=== PATIENT | female | born 1995 | race Caucasian/White ===

== ENCOUNTER 2017-10-09 20:04 | Emergency (ER) | payer OTHER ==
[2017-10-09] MEDS: ONDANSETRON 4MG/2ML VIAL (J2405) IV (20:45)
[2017-10-09] MEDS: NS 1,000 ML IV (20:45)
[2017-10-09 21:03] LABS: BASO % 0.4 % (0.0-1.0); EOS % 0.3 % (0.0-3.0); IMMATURE GRANULOCYTE % 0.3 % (0-3.0); LYMPH # 1.4 10^3/uL (1.5-6.5); LYMPH % 13.4 % (24.0-44.0); MEAN CORPUSCULAR HEMOGLOBIN 29.8 pg (27.0-33.0); MEAN CORPUSCULAR HGB CONC 35.7 g/dl (32.0-36.5); MEAN CORPUSCULAR VOLUME 83.5 fl (80.0-96.0); MONO # 0.6 10^3/uL (0.0-0.8); MONO % 5.9 % (0.0-5.0); NEUTROPHILS # 8.2 10^3/uL (1.8-7.7); NEUTROPHILS % 79.7 % (36.0-66.0); PLATELET COUNT, AUTOMATED 283 10^3/uL (150-450); RED BLOOD COUNT 5.03 10^6/uL (4.00-5.40); RED CELL DISTRIBUTION WIDTH 11.6 % (11.5-14.5); WHITE BLOOD COUNT 10.2 10^3/uL (4.0-10.0)
[2017-10-09] MEDS: MORPHINE 4 MG/ML 1ML VIAL (J2270) IV (21:06)
[2017-10-09 21:30] LABS: ALBUMIN 4.6 GM/DL (3.2-5.2); ALBUMIN/GLOBULIN RATIO 1.28 (1.00-1.93); ALKALINE PHOSPHATASE 72 U/L (45-117); ALT/SGPT 20 U/L (12-78); ANION GAP 12 MEQ/L (8-16); AST/SGOT 19 U/L (7-37); BILIRUBIN,DIRECT 0.3 MG/DL (0.0-0.2); BILIRUBIN,TOTAL 1.7 MG/DL (0.2-1.0); BLOOD UREA NITROGEN 18 MG/DL (7-18); CALCIUM LEVEL 9.5 MG/DL (8.5-10.1); CARBON DIOXIDE LEVEL 23 MEQ/L (21-32); CHLORIDE LEVEL 106 MEQ/L (98-107); CREATININE FOR GFR 0.81 MG/DL (0.55-1.30); GLOMERULAR FILTRATION RATE > 60.0 (>60); GLUCOSE, FASTING 149 MG/DL (70-100); LIPASE 126 U/L (73-393); POTASSIUM SERUM 3.4 MEQ/L (3.5-5.1); SODIUM LEVEL 141 MEQ/L (136-145); TOTAL PROTEIN 8.2 GM/DL (6.4-8.2)
[2017-10-09] MEDS: POTASSIUM CHLORIDE 10 MEQ SR TABLET PO (21:45)
[2017-10-09 21:52] LABS: CONTROL LINE HCG INT CTR LINE PRESENT; HCG, SERUM QUALITATIVE NEGATIVE (NEGATIVE)
[2017-10-09] MEDS ORDERED: GASTROGRAFIN SOLUTION 30ML (Q9963) As Ordered (22:12)
[2017-10-09] MEDS: GASTROGRAFIN SOLUTION 30ML PO ×2 (22:23→22:42)
[2017-10-10] MEDS ORDERED: ISOVUE-370 76% 100ML VIAL (Q9967) As Ordered
[2017-10-10] MEDS: METOCLOPRAMIDE INJ 10MG/2ML VIAL (J2765) IV (00:30)
== END 2017-10-10 01:51 | disposition home or self-care (01) ==
LOC: M ED 10-10 01:51
DX: K52.9 Noninfective gastroenteritis and colitis, unspecified (principal); Z91.040 Latex allergy status
CPT/HCPCS: J2270

== ENCOUNTER 2018-05-27 11:37 | Emergency (ER) | payer OTHER ==
[2018-05-27 12:58] LABS: BASO # 0.1 10^3/uL (0.0-0.2); BASO % 0.6 % (0.0-1.0); EOS # 0.1 10^3/uL (0.0-0.50); HEMATOCRIT 40.8 % (36.0-47.0); HEMOGLOBIN 14.2 g/dl (12.0-15.5); IMMATURE GRANULOCYTE % 0.2 % (0-3.0); LYMPH # 2.3 10^3/uL (1.5-6.5); LYMPH % 21.1 % (24.0-44.0); MEAN CORPUSCULAR HEMOGLOBIN 30.5 pg (27.0-33.0); MEAN CORPUSCULAR HGB CONC 34.8 g/dl (32.0-36.5); MEAN CORPUSCULAR VOLUME 87.7 fl (80.0-96.0); MONO # 0.8 10^3/uL (0.0-0.8); MONO % 7.3 % (0.0-5.0); NEUTROPHILS # 7.4 10^3/uL (1.8-7.7); NEUTROPHILS % 69.8 % (36.0-66.0); PLATELET COUNT, AUTOMATED 296 10^3/uL (150-450); RED BLOOD COUNT 4.65 10^6/uL (4.00-5.40); RED CELL DISTRIBUTION WIDTH 11.9 % (11.5-14.5); WHITE BLOOD COUNT 10.7 10^3/uL (4.0-10.0)
[2018-05-27 13:03] LABS: KETONE, URINE AUTO RFX NEGATIVE (NEGATIVE); LEUKOCYTE ESTERASE UR AUTO RFX NEGATIVE (NEGATIVE); MUCUS, URINE RFX SMALL (NEGATIVE); NITRITE, URINE AUTO RFX NEGATIVE (NEGATIVE); RBC, URINE AUTO RFX 1 /HPF (0-3); SPECIFIC GRAVITY UR AUTO RFX 1.009 (1.002-1.035); SQUAM EPITHELIAL CELL UR AURFX 0 /HPF (0-6); WBC, URINE AUTO RFX 0 /HPF (0-3)
[2018-05-27 13:32] LABS: HCG, SERUM QUANTITATIVE 143095 MIU/ML
== END 2018-05-27 14:24 | disposition home or self-care (01) ==
LOC: M ED 11:37
DX: O26.891 Other specified pregnancy related conditions, first trimester (principal); Z3A.01 Less than 8 weeks gestation of pregnancy; Z79.899 Other long term (current) drug therapy; Z91.040 Latex allergy status
CPT/HCPCS: 76801

== ENCOUNTER 2018-08-05 21:54 | Emergency (ER) | payer OTHER ==
[2018-08-05] MEDS: ALBUTEROL SULFATE 2.5 MG/0.5 ML INH NEB SOLN NEB (23:24)
[2018-08-06] MEDS ORDERED: ALBUTEROL 90 MCG/ACT 8GM HFA INHALER INH (00:30)
== END 2018-08-06 00:29 | disposition home or self-care (01) ==
LOC: M ED 08-06 00:29
DX: J20.9 Acute bronchitis, unspecified (principal)
CPT/HCPCS: 94640

== ENCOUNTER 2018-09-17 07:08 | Emergency (ER) | payer OTHER ==
[~2018-09-17] VITALS: Ht 165.1 cm; Wt 67.3 kg
[~2018-09-17 07:08] MED LIST: REGL10TA6 PO; UNIS25TA3 PO; VENTAER INH; ZOFR4TAB14 PO; vitamin b PO
[2018-09-17 07:09] VITALS: BP 123/58
[2018-09-17] MEDS ORDERED: METOCLOPRAMIDE INJ 10MG/2ML VIAL (J2765) IV ONE (07:30)
[2018-09-17] MEDS ORDERED: NS 1,000 ML IV ONE (07:30)
[2018-09-17 08:09] LABS: BASO % 0.1 % (0.0-1.0); HEMATOCRIT 34.4 % (36.0-47.0); HEMOGLOBIN 11.9 g/dl (12.0-15.5); LYMPH # 0.7 10^3/uL (1.5-6.5); LYMPH % 4.8 % (24.0-44.0); MEAN CORPUSCULAR HEMOGLOBIN 31.2 pg (27.0-33.0); MEAN CORPUSCULAR HGB CONC 34.6 g/dl (32.0-36.5); MEAN CORPUSCULAR VOLUME 90.1 fl (80.0-96.0); MONO # 0.5 10^3/uL (0.0-0.8); MONO % 3.2 % (0.0-5.0); NEUTROPHILS % 91.4 % (36.0-66.0); PLATELET COUNT, AUTOMATED 263 10^3/uL (150-450); RED BLOOD COUNT 3.82 10^6/uL (4.00-5.40); WHITE BLOOD COUNT 14.3 10^3/uL (4.0-10.0)
[2018-09-17 08:24] LABS: ALBUMIN 3.4 GM/DL (3.2-5.2); ALT/SGPT 10 U/L (12-78); AMYLASE 45 U/L (25-115); BILIRUBIN,TOTAL 0.7 MG/DL (0.2-1.0); BLOOD UREA NITROGEN 12 MG/DL (7-18); CALCIUM LEVEL 8.7 MG/DL (8.5-10.1); CARBON DIOXIDE LEVEL 24 MEQ/L (21-32); CHLORIDE LEVEL 105 MEQ/L (98-107); CREATININE FOR GFR 0.47 MG/DL (0.55-1.30); GLOMERULAR FILTRATION RATE > 60.0 (>60); GLUCOSE, FASTING 103 MG/DL (70-100); LIPASE 81 U/L (73-393); POTASSIUM SERUM 4.1 MEQ/L (3.5-5.1); SODIUM LEVEL 138 MEQ/L (136-145); TOTAL PROTEIN 7.2 GM/DL (6.4-8.2)
[2018-09-17] MEDS ORDERED: ONDA4TAB6 PO (08:42)
== END 2018-09-17 08:54 | disposition home or self-care (01) ==
LOC: M ED 07:08
DX: O21.9 Vomiting of pregnancy, unspecified (principal); Z3A.24 24 weeks gestation of pregnancy; Z91.040 Latex allergy status
CPT/HCPCS: 80053; 81001; 82150; 83690; 85025; 87086; 96374; 99283; J2765

== ENCOUNTER 2018-10-22 13:10 | Outpatient (CLI) | payer OTHER ==
[~2018-10-22] VITALS: Ht 165.1 cm; Wt 70.5 kg
[~2018-10-22 13:10] MED LIST changes: +ONDA4TAB6 PO
[2018-10-22 13:36] VITALS: BP 107/58
--- NOTE | 2018-10-22 14:45 | HPE ---
DATE: 10/22/2018 23-year-old, 2, para 1, LMP 02/17/2018, EDC 01/02/2019 at 29 and 5 comes in with a history contractions every 15 minutes while at work. No vaginal loss or bleeding. 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 Her past history is in 2016 at 39 and 2 spontaneous vaginal delivery male 7 pounds 1 ounce. She has no basic risk factors. Labs are B positive, HIV negative, hepatitis negative, RPR negative, rubella immune, varicella immune. Pap normal. Urine negative. Gonorrhea and chlamydia are negative. 1-hour glucose was 118. Blood pressure today 107/58, respirations 18, pulse is 80, temperature 98.0. Urine is 105, pH is 5 and negative negative negative. On examination no distress. Symphysis fundus height is 30, vertex category one strip. Accelerations noted. No decelerations. The occasional tightening. Cervix is very posterior. Vertex is high and not dilated, thick. No vaginal loss or bleeding. fibronectin (FFN) was performed. We did notice that her mucous membranes are quite dry and she is not drinking enough. The rest examination is unremarkable. Normocephalic, atraumatic. Neck full range of motion. Pupils equal and reactive to light. Distal pulses symmetric. No evidence of deep venous thrombosis (DVT), pulmonary embolism (PE) or superficial phlebitis. No wheezes or rhonchi. No CVA tenderness. Four quadrant bowel sounds are noted. She has no rashes, lesions or pruritus. No arthralgia. No complaint of joint pain. She has no complaint of cough, wheeze, shortness of breath or dyspnea on exertion. No bleeding. Neuro complete. No frequency. No diabetic issues. 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 Past medical and surgical is unremarkable. Family history is noncontributory. She does not smoke, drink or abuse drugs. She is active duty, works in the kitchen, and there is no domestic violence. In summary we have a 29+ week of gestation, uterine irritability, slight dehydration. Precautions were given, increasing hydration was explained and the patient was discharged undelivered. We will followup her FFN. If positive, we discussed with her plans for steroids for lung enhancement. The patient has an appointment at the clinic October 2018.
== END 2018-10-22 14:12 | disposition home or self-care (01) ==
LOC: M LDO 13:10
PROVIDERS: ATTEND Obstetrics & Gynecology
DX: O62.2 Other uterine inertia (principal); O26.893 Other specified pregnancy related conditions, third trimester; O99.283 Endocrine, nutritional and metabolic diseases complicating pregnancy, third trimester; E86.0 Dehydration; Z3A.29 29 weeks gestation of pregnancy
CPT/HCPCS: 82731; G0378; G0463

== ENCOUNTER 2018-11-04 16:51 | Outpatient (CLI) | payer OTHER ==
[~2018-11-04] VITALS: Ht 165.1 cm; Wt 74.3 kg
[2018-11-04 17:10] VITALS: BP 105/66
[2018-11-04] MEDS ORDERED: PRENTAB9 PO (17:18)
[2018-11-04] MEDS ORDERED: LR 1,000 ML IV ONE (18:30)
--- NOTE | 2018-11-04 18:35 | IPNPDOC ---
Text Note Date of Service The patient was seen on 11/04/18. NOTE 23 y/o at 31+4 with worsening painful ctx's q 4-5 min most of afternoon. Has noticed a lot more uterine activity/ctx's last few weeks. No VB or LOF or increase in D/C. Pos FM. Uncomplicated . Also h/o uncomplicated and delivery at term. No STI risk factors, never had one. VSSAF NST reassuring for EGA, reg ctx's, pos accels, mod juani Cx L/T/Cl No fundal/abdominal tenderness Urine dipped: Wet prep neg for BV and Yeast fFN pending Plan on 1 L LR bolus and watch NST/ctx's closely Sessions 2106 fFN neg, will not give Beta at this time. Given Terb and her ctx's have stopped. Feels no different therefore I did not recheck her Cx. I rec rest tomorrow, no duty. Strict PTL precautions d/w pt. If comes back with painful reg ctx's which she had earlier I will Tx with Beta regardless of fFN result. Sessions Julian ARROYO, I+O Julian GARCIA I+O Vital Signs Date Time Temp Pulse Resp B/P (MAP) Pulse Ox O2 Delivery O2 Flow Rate FiO2 11/04/18 17:10 98.3 85 18 105/66 (79) SESSIONS,BIENVENIDO Valentin MD Nov 04, 2018 18:35
[2018-11-04] MEDS ORDERED: TERBUTALINE SULFATE 1 MG/ML VIAL (J3105) SC ONE (20:00)
[2018-11-04 20:12] VITALS: BP 94/52
[2018-11-04 21:04] VITALS: BP 126/60
== END 2018-11-04 21:20 | disposition home or self-care (01) ==
LOC: M LDO 16:51
PROVIDERS: ATTEND Obstetrics & Gynecology
DX: O47.03 False labor before 37 completed weeks of gestation, third trimester (principal); Z3A.31 31 weeks gestation of pregnancy
CPT/HCPCS: 59025; 82731; 96360; 96361; 96372; G0378; G0463; J3105

== ENCOUNTER 2018-11-06 19:09 | Outpatient (CLI) | payer OTHER ==
[~2018-11-06] VITALS: Ht 165.1 cm; Wt 73.5 kg
[~2018-11-06 19:09] MED LIST changes: +PRENTAB9 PO
[2018-11-06 19:34] VITALS: BP 126/66
[2018-11-06 20:29] VITALS: BP 110/59
[2018-11-06] MEDS ORDERED: BETAMETHASONE SOLUSPAN 6MG/ML INJ 5ML (J0702) IM SCH (21:15)
[2018-11-06 21:37] VITALS: BP 119/60
== END 2018-11-06 21:38 | disposition home or self-care (01) ==
LOC: M LDO 19:09
PROVIDERS: ATTEND Obstetrics & Gynecology
DX: O47.03 False labor before 37 completed weeks of gestation, third trimester (principal); Z3A.31 31 weeks gestation of pregnancy
CPT/HCPCS: 59025; 96372; G0378; G0463; J0702

== ENCOUNTER 2018-11-07 20:54 | Outpatient (CLI) | payer OTHER ==
[2018-11-07 21:10] VITALS: BP 120/58
[2018-11-07] MEDS ORDERED: BETAMETHASONE SOLUSPAN 6MG/ML INJ 5ML (J0702) IM SCH (21:15)
== END 2018-11-07 21:48 | disposition home or self-care (01) ==
LOC: M LDO 20:54
PROVIDERS: ATTEND Obstetrics & Gynecology
DX: Z34.83 Encounter for supervision of other normal pregnancy, third trimester (principal); Z3A.31 31 weeks gestation of pregnancy
CPT/HCPCS: 96372; G0378; G0463; J0702

== ENCOUNTER 2018-12-19 07:24 | Outpatient (CLI) | payer OTHER ==
[~2018-12-19] VITALS: Ht 165.1 cm; Wt 76.3 kg
[2018-12-19 07:55] VITALS: BP 99/64
[2018-12-19 08:46] VITALS: BP 104/61
--- NOTE | 2018-12-19 10:56 | IPNPDOC ---
Text Note Date of Service The patient was seen on 12/19/18. NOTE [id number] @ 1040- LATE ENTRY from [id number] @ 0900 23 yo @ 38+0 by 11+6 wk US on [id number] reports to L&D ambulatory with c/o LOF, clear since 529. Denies vaginal bleeding, DFM, and CTXs. S: Pt reports to L&D with concerns of LOF. Reports LOF @ 0530 this am. Fluid noted to be clear mucous. Has saturated 2 panty liners since 529. Noted to have intercourse last night. Denies vaginal bleeding, DFM, and CTXs. O: VS- WNL, afebrile FHR-130, moderate variability, + accels, possible isolated periodic mild variable deceleration @ 0810-noted to have moderate variability during decrease in FHR for approx 80 sec to 20 bpm below BL FHR. CTX- irregular, lasting >60 seconds, palpated as mild, resting tone palpated as soft Limited OB US- SIUP, + CA, + FM, VTX, GHULAM-13.7 BPP-10/10 GBS negative Valsalva- negative Pooling-negative Ferning- negative S: 23 yo @ 38+0 with 10/10 BPP, irregular CTXs, Reactive NST, and neg SROM exam O: Discharge to home with strict return precautions. Spent 15 min counseling on DFM, LOF, CTXs, vaginal bleeding, and pre-e precautions. She verbalized understanding. Sent home with 72 hour Quarters. VS,Fishbone, I+O VS, Fishbone, I+O Vital Signs Date Time Temp Pulse Resp B/P (MAP) Pulse Ox O2 Delivery O2 Flow Rate FiO2 12/19/18 08:46 98.5 87 16 104/61 (75) 99 Room Air KARLA ALBERTO CNM Dec 19, 2018 10:56
== END 2018-12-19 09:20 | disposition home or self-care (01) ==
LOC: M LDO 07:24
PROVIDERS: ATTEND Midwife
DX: O26.893 Other specified pregnancy related conditions, third trimester (principal); Z3A.38 38 weeks gestation of pregnancy
CPT/HCPCS: 59025; G0378; G0463

== ENCOUNTER 2018-12-30 03:02 | Inpatient (IN) | payer OTHER ==
[~2018-12-30] VITALS: Ht 165.1 cm; Wt 76.9 kg
[2018-12-30] VITALS (46 sets, daily range): BP systolic 75–118; BP diastolic 47–70
[2018-12-30] MEDS ORDERED: LACTATED RINGER'S 1000 ML IV STA (03:23)
--- NOTE | 2018-12-30 03:34 | HPEPDOC ---
Obstetrical History & Physical General Date of Admission December 30, 2018 at 03:11 History of Present Illness 23 yo at 39+4 weeks gestation by 8+4 week US on [id number] presents to L& D with the complaint of a large gush of fluid and continuous leaking that started at 0145. The fluid has been clear. She denies any vaginal bleeding. She endorses mild contractions but nothing significant. She endorses excellent movement. is uncomplicated. Chief Complaint: LOF, term Information Provided By: Patient Age: 23 : 2 Term: 1 Pre-term: 0 Abortions: 0 Livin Care Care: Good Care Dating Final EDC: January 02, 2019 Final EDC for Daily Update: January 02, 2019 Final EDC by: 1st trimester (US) (MEAGHAN set by 8+4 week US on [id number]) Antepartum Course Diagnos(e)s Uncomplicated Past Medical History Past Obstetrical History : Past Obstetrical History: Multigravida Type of Delivery: Spontaneous Vaginal Del. (History of at term, pelvis proven to 7lbs 10oz) Complications: No CORRECTIONAL CASE MANAGER History: No pertinent history Past Medical History Medical History Denies Surgical History: Frierson teeth Family History Significant Family History: No pertinent family hx Family History Non contributory Social History Marital Status: Family situation: Spouse/partner home Psychosocial History: No pertinent psych hx * Smoker: non-smoker Alcohol: Denies Drugs: denies Imunizations Tdap status: current Influenza Status: current Allergies Coded Allergies: latex (Verified Allergy, Intermediate, MILD RASH, 12/19/18) Medications Scheduled No.137/Iron/Folic Acd ( Vitamin Tablet) 1 Tab Tab, 1 TAB PO DAILY Physical Examination Physical Examination GENERAL: Alert and oriented times three. ABDOMEN: Gravid and non-tender to touch. FETUS: Is vertex (VTX) by sterile vaginal examination (SVE) EXTREMITIES: No edema. Grossly ruptured membranes noted on cervical exam. Laboratory Data 24H LAB[facility] Laboratory Tests 2 12/30/18 03:14: Serology Scanned Report Hepatitis B Testing Urine Culture: No Growth Pertinent Laboratoy Data Blood Type: B+ RBC Antibody Screen: Negative HIV: Negative Hepatitis B: Negative Hepatitis C: Unknown Rapid Plasma Reagin: Nonreactive Rubella: Immune Varicella: Immune Chlamydia/Gonorrhea: Negative Group B Streptococcus: Negative Quad Screen Test: Unknown Cystic Fibrosis: Negative Glucose Tolerance Test: 118 Anatomy Ultrasound Placenta Location: Anterior Normal Anatomy: Yes Placenta Previa: No Vaginal Examination Dilation: 3 cm Effacement: 50% Station: -2 Cervical Consistency: Soft Cervical Position: Middle Presentation: Cephalic presentation Position: Vertex (occiput) Assessment Heart Rate (FHR): 125 Variability: Moderate Accelerations: Positive Decelerations: None Tocometer Contractions: Yes Frequency: irregular Duration: less than 60 seconds Strength: palpated as mild Assessment/Plan Assessment 23 yo at 39+4 weeks gestation presented to L&D with grossly ruptured membranes. Plan Admit to L&D for expectant management of SROM. Will augment labor as clinically indicated. Apply IV fluids. Lab work per protocol. GBS negative. Clear liquid diet. Patient may have epidural if desired. Anticipate . DO JAX Bess CHRISTOPHER J. DO December 30, 2018 03:34
[2018-12-30 03:52] LABS: HEMATOCRIT 30.9 % (36.0-47.0); HEMOGLOBIN 10.4 g/dl (12.0-15.5); MEAN CORPUSCULAR HGB CONC 33.7 g/dl (32.0-36.5); MEAN CORPUSCULAR VOLUME 86.1 fl (80.0-96.0); PLATELET COUNT, AUTOMATED 231 10^3/uL (150-450); RED BLOOD COUNT 3.59 10^6/uL (4.00-5.40); WHITE BLOOD COUNT 9.7 10^3/uL (4.0-10.0)
[2018-12-30] MEDS ORDERED: PRENTAB9 PO (04:42)
[2018-12-30] MEDS ORDERED: LR 1,000 ML IV SCH (06:47)
[2018-12-30] MEDS ORDERED: OXYTOCIN DRIP 30 UNITS in APPROPRIATE DILUENT 1 EA IV SCH ×2 (07:00→14:59)
[2018-12-30] MEDS: PRENATAL VITAMINS CHEWABLE TABLET PO SCH (09:00)
--- NOTE | 2018-12-30 09:09 | IPNPDOC ---
Text Note Date of Service The patient was seen on 12/30/18. NOTE SBAR from Dr Chou at 730. Pitocin at 4 mu/min. Cx /-2/vtx not well applied, possible forebag. Doing well. Cont to incr pitocin. Recheck in ~4 hrs, sooner prn. Sessions A-FIB/ILANA A-FIB History Current/History of A-Fib/PAF?: No VS,Fishbone, I+O VS, Fishbone, I+O Laboratory Tests 12/30/18 03:44 Red Blood Count 3.59 L, Mean Corpuscular Volume 86.1, Mean Corpuscular Hemogl obin 29.0, Mean Corpuscular Hemoglobin Concent 33.7, Red Cell Distribution Width 11.9 Vital Signs Date Time Temp Pulse Resp B/P (MAP) Pulse Ox O2 Delivery O2 Flow Rate FiO2 12/30/18 07:05 97.6 90 16 98/53 (68) I&O- Last 24 Hours up to 6 AM 12/30/18 06:00 Intake Total 150 ml Balance 150 ml SESSIONS,BIENVENIDO Valentin MD December 30, 2018 09:09
[2018-12-30] MEDS ORDERED: FENTANYL 2MCG/ML ROPIVACAINE 0.2% IN 0.9% NACL 100ML IVBAG As Ordered ONE (10:39)
[2018-12-30] MEDS ORDERED: LACTATED RINGER'S 1000 ML IV PRN (11:30)
[2018-12-30] MEDS ORDERED: FENTANYL/ROPIVACAINE/NACL BAG 100 ML EPIDURAL SCH (11:30)
[2018-12-30] MEDS ORDERED: ONDANSETRON 4MG/2ML VIAL (J2405) IV PRN (11:30)
[2018-12-30] MEDS ORDERED: ePHEDrine SULFATE 25 MG/5 ML(5MG/ML) SYRINGE IV PRN (11:30)
[2018-12-30] MEDS ORDERED: EPIDURAL/PCA KEYS XX PRN (11:30)
[2018-12-30] MEDS ORDERED: diphenhydrAMINE INJ 50MG/ML VIAL (J1200) IV PRN (11:30)
[2018-12-30] MEDS ORDERED: NALOXONE INJ 0.4 MG/1 ML VIAL (J2310) IV PRN (11:30)
[2018-12-30] MEDS ORDERED: EPIDURAL COMMENT XX SCH (11:30)
[2018-12-30] MEDS ORDERED: REFRIGERATOR IV KEYS XX PRN (11:30)
--- NOTE | 2018-12-30 11:55 | IPNPDOC ---
Text Note Date of Service The patient was seen on 12/30/18. NOTE Large amt of fluid, likely true SROM, admission SROM likely a high leak, etc Now s/p successful epidural, needed ephedrine 5 mg x1 Cx 7/100/0 Doing well. Check in 1-2 hrs, sooner prn. Sessions A-FIB/ILANA A-FIB History Current/History of A-Fib/PAF?: No VS,Fishbone, I+O VS, Fishbone, I+O Laboratory Tests 12/30/18 03:44 Red Blood Count 3.59 L, Mean Corpuscular Volume 86.1, Mean Corpuscular Hemoglobin 29.0, Mean Corpuscular Hemoglobin Concent 33.7, Red Cell Distribution Width 11.9 Vital Signs Date Time Temp Pulse Resp B/P (MAP) Pulse Ox O2 Delivery O2 Flow Rate FiO2 12/30/18 09:28 97.2 74 16 99/53 (68) I&O- Last 24 Hours up to 6 AM 12/30/18 06:00 Intake Total 150 ml Balance 150 ml SESSIONS,BIENVENIDO Valentin MD December 30, 2018 11:55
--- NOTE | 2018-12-30 13:40 | IPNPDOC ---
Text Note Date of Service The patient was seen on 12/30/18. NOTE Doing well, feeling pressure AL/C/+1, little bit of cx easily reduces Start pushing soon Sessions A-FIB/ILANA A-FIB History Current/History of A-Fib/PAF?: No VS,Fishbone, I+O VS, Fishbone, I+O Laboratory Tests 12/30/18 03:44 Red Blood Count 3.59 L, Mean Corpuscular Volume 86.1, Mean Corpuscular Hemoglobin 29.0, Mean Corpuscular Hemoglobin Concent 33.7, Red Cell Distribution Width 11.9 Vital Signs Date Time Temp Pulse Resp B/P (MAP) Pulse Ox O2 Delivery O2 Flow Rate FiO2 12/30/18 11:55 71 89/50 (63) 12/30/18 11:28 97.2 20 I&O- Last 24 Hours up to 6 AM 12/30/18 06:00 Intake Total 150 ml Balance 150 ml SESSIONS,BIENVENIDO Valentin MD December 30, 2018 13:40
[2018-12-30] MEDS ORDERED: DIBUCAINE 1% OINTMENT 30GM TOP PRN (15:00)
[2018-12-30] MEDS ORDERED: METOCLOPRAMIDE INJ 10MG/2ML VIAL (J2765) IV PRN (15:00)
[2018-12-30] MEDS ORDERED: RHOGAM 300 MCG (1500 IU) INJ (J2790) IM SCH (15:00)
[2018-12-30] MEDS ORDERED: MEASLES,MUMPS,RUBELLA VACCINE INJ (MMR-II) (90707) SC SCH (15:00)
--- NOTE | 2018-12-30 15:11 | DNPDOC ---
[facility] Delivery Note Delivery Note DATE OF DELIVERY: [id number] PREDELIVERY DIAGNOSIS: 39 4/7 weeks' gestation and labor. POST DELIVERY DIAGNOSIS: Delivered. 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 FINDINGS: 7 pound 14 ounce male , Score 9/9 DELIVERY SUMMARY: Called to room, C/C/+3, great effort, good pusher. Del'd ASYA to LOT, no delay of ant or post shoulder. Vigorous infant to abd. Cord C/C by FOB. Cord blood. Placenta intact at 1447. Pit going 999, fundus firm. No lacs at all. Uncomplicated. BIENVENIDO Calderon MD, MD December 30, 2018 15:11
[2018-12-30] MEDS: IBUPROFEN 800 MG TAB PO PRN (16:44)
[2018-12-30] MEDS: ACETAMINOPHEN TAB 650MG DOSE (2X325MG) PO PRN (20:13)
[2018-12-30] MEDS: DOCUSATE SODIUM 100 MG CAP PO SCH (20:13)
[2018-12-31] MEDS: IBUPROFEN 800 MG TAB PO PRN ×2 (00:41→12:01)
[2018-12-31] MEDS: ACETAMINOPHEN TAB 650MG DOSE (2X325MG) PO PRN (05:27)
[2018-12-31 06:03] VITALS: BP 98/55
--- NOTE | 2018-12-31 07:14 | DS.PDOC ---
Discharge Summary General Date of Admission December 30, 2018 at 03:11 Date of Discharge [id number] Discharge Summary ADMITTING DIAGNOSES: Active labor, SROM DISCHARGE DIAGNOSES: Same, HOSPITAL COURSE: Admitted and delivery uncomplicated, . course uncomplicated. DISCHARGE MEDICATIONS: Motrin, Lanolin DISCHARGE INSTRUCTIONS: Nothing in the vagina for 6 weeks. F/U in OBGYN clinic in 6-8 weeks. Sessions Vital Signs/I&Os Vital Signs Date Time Temp Pulse Resp B/P (MAP) Pulse Ox O2 Delivery O2 Flow Rate FiO2 12/31/18 06:03 98.0 77 18 98/55 (69) I&O- Last 24 Hours up to 6 AM 12/31/18 06:00 Intake Total 3749.2 ml Output Total 1250 ml Balance 2499.2 ml Discharge Medications Scheduled No.137/Iron/Folic Acd ( Vitamin Tablet) 1 Tab Tab, 1 TAB PO DAILY, (Reported) No.137/Iron/Folic Acd ( Vitamin Tablet) 1 Each Tablet, 1 TAB PO DAILY, (Reported) Allergies Coded Allergies: latex (Verified Allergy, Intermediate, MILD RASH, 12/19/18) SESSIONS,BIENVENIDO Valentin MD December 31, 2018 07:14
[2018-12-31] MEDS ORDERED: ACET1TAB55 PO (07:15)
[2018-12-31] MEDS ORDERED: IBUP80TA PO (07:15)
--- NOTE | 2018-12-31 07:18 | IPNPDOC ---
Text Note Date of Service The patient was seen on 12/31/18. NOTE PPD1 States feeling well, pain controlled with prescribed meds. Baby bonding and feeding well. No heavy VB. Lochia slowing. Ambulatory. Tolerating PO without issues. Voiding spont. No CP/LP/SOB. VSSAF NAD A&O LE no C/C/E Ut at U-2, firm a/p: Doing well. Cont routine care. D/C today. Sessions A-FIB/ILANA A-FIB History Current/History of A-Fib/PAF?: No VS,Fishbone, I+O VS, Fishbone, I+O Vital Signs Date Time Temp Pulse Resp B/P (MAP) Pulse Ox O2 Delivery O2 Flow Rate FiO2 12/31/18 06:03 98.0 77 18 98/55 (69) I&O- Last 24 Hours up to 6 AM 12/31/18 06:00 Intake Total 3749.2 ml Output Total 1250 ml Balance 2499.2 ml SESSIONS,BIENVENIDO Valentin MD December 31, 2018 07:18
[2018-12-31] MEDS: PRENATAL VITAMINS CHEWABLE TABLET PO SCH (07:31)
[2018-12-31 09:00] VITALS: BP 124/56
[2018-12-31] MEDS: DOCUSATE SODIUM 100 MG CAP PO SCH (09:00)
== END 2018-12-31 16:46 | disposition home or self-care (01) | DRG 807 ==
LOC: M LDO 03:02 → M LDI 03:11 → M OBS 17:29
PROVIDERS: ADMIT Obstetrics & Gynecology; ATTEND Obstetrics & Gynecology
PROC: 10E0XZZ Delivery of Products of Conception, External Approach (ICD-10-PCS; principal; 2018-12-30)
DX: O80 Encounter for full-term uncomplicated delivery (principal); Z37.0 Single live birth; Z3A.39 39 weeks gestation of pregnancy; Z91.040 Latex allergy status

== ENCOUNTER 2019-01-10 19:14 | Emergency (ER) | payer OTHER ==
[~2019-01-10 19:14] MED LIST changes: +ACET1TAB55 PO; +IBUP80TA PO
[2019-01-10] MEDS ORDERED: ONDANSETRON 4 MG ORAL DISINTEGRATING TAB (Q0162 PER 1MG) PO ONE (19:45)
[2019-01-10] MEDS ORDERED: DICL500C PO ×2 (21:50→21:56)
[2019-01-10 22:18] VITALS: BP 106/62
[2019-01-10] MEDS ORDERED: DICLOXACILLIN 250 MG CAP PO ONE (22:30)
== END 2019-01-10 22:44 | disposition home or self-care (01) ==
LOC: M ED 19:14
DX: N61.0 Mastitis without abscess (principal); Z79.899 Other long term (current) drug therapy; Z91.040 Latex allergy status

== ENCOUNTER 2019-02-07 01:18 | Emergency (ER) | payer OTHER ==
[~2019-02-07] VITALS: Ht 165.1 cm; Wt 63.6 kg
[~2019-02-07 01:18] MED LIST changes: +DICL500C PO
[2019-02-07] MEDS ORDERED: ERYTHROMYCIN OPHTH OINT OD ONE (04:00)
[2019-02-07] MEDS ORDERED: AZITHROMYCIN 250 MG TAB PO ONE (04:00)
[2019-02-07] MEDS ORDERED: ZITHTAB PO (04:18)
[2019-02-07 04:24] VITALS: BP 136/68
--- NOTE | 2019-02-07 08:50 | REP ---
CHEST: Two views. There is no evidence of acute infiltrate. No pleural effusion is seen. The heart is normal in size. The mediastinal silhouette is unremarkable. The visualized osseous structures are intact. IMPRESSION: No acute pulmonary disease. Electronically Signed by Carlos Grande MD 02/07/2019 07:22 P
== END 2019-02-07 04:27 | disposition home or self-care (01) ==
LOC: M ED 01:18
DX: J40 Bronchitis, not specified as acute or chronic (principal); H10.31 Unspecified acute conjunctivitis, right eye; Z91.040 Latex allergy status